=== PATIENT | male | born 1945 | race Caucasian/White ===

== ENCOUNTER 2023-01-21 19:31 | Emergency (ER) | payer OTHER, SELFPAY ==
--- NOTE | 2023-01-21 19:49 | ED_ITS ---
HPI - CPR General Chief Complaint: Cardiac Arrest/CPR Stated Complaint: FOUND UNRESPONSIVE Source: EMS Mode of arrival: EMS Limitations: other (ongoing CPR) History of Present Illness HPI narrative: 77 yo male from home with cardiac history and stents per EMS reportedly was at home and heard a thud - when they arrived PD was doing CPR and he was initally in asystole then went into vfib. No ROSC achieved. He received multiple shocks, 300mg amiodarone, intubated 7.5 ETT, 6 epi. Came to ED about 55 minutes after downtime without ROSC. MD complaint: found unresponsive Onset (ago): minute(s) (55) Timing confirmed by: family member Place: home Bystander CPR performed: No AED applied by bystander/senior gamemaster: Yes Shock advised: Yes Number of shocks delivered: >3 Initial findings in the field: no pulse and other rhythm (asystole) ROSC in the field: No Associated injuries: No Known history of: CAD Treatments prior to arrival: intubation, chest compressions, defibrillated shocks #, epinephrine mgs # (6), amiodarone (300) and magnesium Related Data Allergies Allergy/AdvReac Type Severity Reaction Status Date / Time Unable to Assess Allergy Unverified 01/21/23 19:32 Review of Systems Review of Systems: ROS unable to be obtained due to CPR [facility] Past Medical History Medical History Coronary artery disease Social History Social History (Updated 01/21/23 @ 19:52 by Marisol Hernandez DO) Patient Tobacco Use Status: Tobacco use Unknown Advance Directives: No Advance Directives Information Provided: No Physical Exam Vital Signs: Appearance: unresponsive ongoing CPR. Severe acute distress. Eyes: Pupils constricted ENT: Pharynx blood noted in ETT - 7.5 24 at the lip Neck: Normal inspection. Neck supple. CVS: no heart sounds noted, pulse felt with leticia but otherwise no spontaneous pulse Respiratory: no spontaneous respirations, bagged by RT, cold hands Abdomen: distended but soft Skin: Skin pale and cold Extremities: No lower extremity edema. I O in R shoulder Neuro: unresponsive no response to painful stimuli Course Course Course Narrative: additional 3+ shocks, lidocaine 100mg, epi multiple doses without vfib then patient went to PEA and then asystole total cardiac arrest was 60 minutes. patient resuscitative efforts deemed futile as no ROSC was felt, fixed and dilated pupils, no cardiac activity on US - time of 1937. Reevaluation(s) Reevaluation #1: no contacts listed in chart Reevaluation #2: and son here notified Medical Decision Making Medical Decision Making [facility] Narrative: 77 yo male with PMH of CAD s/p stents per EMS here with refractory vfib and prolonged CPR 55 minutes - will continue resuscitative efforts in ED suspect CAD as cause. Differential Diagnosis Differential Diagnoses: The differential diagnosis associated with the presentation includes CAD, vfib Lab Data [facility] Lab Attestation statement: I reviewed the patient's lab results. Independent Interpretation I performed an independent interpretation of an: Rhythm Strip (vfib, PEA, asytole) Independent Historian Clinical information obtained from an independent historian. History obtained from or confirmed by: EMS Critical Care Time Critical Care Time Critical Care Time: Yes Total Critical Care Time: 35 Attestation: discussion with EMS, family discussion, post mortem care and records, CPR I attest to this time spent taking care of the patient Discharge Plan Discharge Clinical Impression: Cardiac arrest Patient Disposition: Date/Time: 01/21/23 19:37
--- NOTE | 2023-01-21 20:30 | PC.NURSE ---
RN spoke with MD Hernandez who informed staff that the ME does not need to be contacted as this is not an ME case.
[2023-01-21 23:10] VITALS: BMI 31.0
[2023-01-24 07:05] LABS: Glucose, Whole Blood 100 mg/dL (60-115)
== END 2023-01-21 23:25 | disposition expired ==
PROVIDERS: Emergency Provider Emergency Medicine; PCP Family Medicine
DX: I46.9 Cardiac arrest, cause unspecified (principal); I25.10 Atherosclerotic heart disease of native coronary artery without angina pectoris
CPT/HCPCS: 82947; 99283; 99284; J0171